=== PATIENT | male | born 1955 | race Caucasian/White ===

== ENCOUNTER 2019-07-21 19:41 | Emergency (ER) | payer OTHER ==
[~2019-07-21] VITALS: Ht 180.3 cm; Wt 100.0 kg
[~2019-07-21 19:41] MED LIST: CHANTIX 1 MG TAB1 MG PO; MOTRIN600 MG PO; NEXIUM40 MG PO; NORCO 5/325 TAB1 TA1 PO; PROVIGIL200 MG PO
[2019-07-21 19:47] VITALS: Ht 180.3 cm; Wt 100.0 kg
[2019-07-21] MEDS ORDERED: AMOXICILLIN500 M1 PO (19:49)
[2019-07-21] MEDS ORDERED: PREDNISONE10 MG PO (19:49)
[2019-07-21 20:14] LABS: BASOPHILS 0.3 % (0-2); EOSINOPHILS 2.7 % (0-7); HEMATOCRIT 47.2 % (42.0-54.0); HEMOGLOBIN 15.7 g/dL (13.5-17.5); IMMATURE GRANULOCYTES 0.1 % (0-5); LYMPHOCYTES 18.5 % (15-50); MCH 34.1 pg (26.0-34.0); MCHC 33.3 g/dL (31.0-37.0); MCV 102.4 fL (80.0-100.0); MEAN PLATELET VOLUME 10.2 fL (7.4-10.4); MONOCYTES 8.1 % (2-11); NEUTROPHILS 70.3 % (40-80); RBC 4.61 10x6/uL (4.20-6.10); RDW 12.6 % (11.5-14.5); WBC 7.8 10x3/uL (4.8-10.8)
[2019-07-21 20:16] LABS: PLATELET COUNT 247 10x3/uL (130-400)
[2019-07-21 20:19] LABS: INR 0.97 (0.85-1.17); PROTIME 12.4 SECONDS (11.6-15.0)
[2019-07-21 20:54] LABS: CALC OSMOLALITY 290 mosm/kg (275-300); CALCIUM 8.3 mg/dL (8.5-10.1); CARBON DIOXIDE 28.5 mmol/L (21.0-32.0); CHLORIDE - SERUM 110 mmol/L (98-107); GLUCOSE 149 mg/dL (74-106); POTASSIUM - SERUM 4.3 mmol/L (3.5-5.1); SODIUM 145 mmol/L (136-145); UREA NITROGEN 11 mg/dL (7-18); eGFR NON AFRICAN AMERICAN 80 mL/min (90-120)
[2019-07-21] MEDS ORDERED: ALBUTEROL SULF8.5 GM INH (20:55)
[2019-07-21] MEDS ORDERED: SCOT-TUSSI10 MG/5 ML PO (20:55)
[2019-07-21 21:09] LABS: ALBUMIN 2.9 g/dL (3.4-5.0); ALKALINE PHOSPHATASE 76 U/L (46-116); ALT (SGPT) 30 U/L (10-68); BILIRUBIN - TOTAL 0.27 mg/dL (0.2-1.3); CKMB 1.4 U/L (0.0-3.6); CREATINE KINASE 192 UL (21-232); PRO BNP 72 pg/mL (0-125)
[2019-07-21 21:10] LABS: TROPONIN-I < 0.017 ng/mL (0.000-0.060)
[2019-07-21 21:46] VITALS: BP 132/65
== END 2019-07-21 21:46 | disposition home or self-care (01) ==
LOC: D.ER 19:41
PROVIDERS: Emergency Medicine
DX: J44.1 Chronic obstructive pulmonary disease with (acute) exacerbation (principal); Z72.0 Tobacco use; M19.90 Unspecified osteoarthritis, unspecified site; R06.02 Shortness of breath; R07.89 Other chest pain